=== PATIENT | female | born 1955 | race Caucasian/White ===

== ENCOUNTER 2020-09-28 13:49 | Emergency (ER) | payer OTHER ==
[~2020-09-28 13:49] MED LIST: ASPIRIN EC81 MG PO; LIPITOR40 MG PO; LISINOPRIL-HCT1 EAC1 PO; PREDNISONE 20MG20 MG PO; PRILOSEC40 MG PO; TOPROL XL 25MG25 MG PO; TOPROL XL 50 MG50 MG PO; VENTOLIN HFA IN18 GM INH; VIBRAMYCIN100 MG PO; ZOLOFT50 MG PO
[2020-09-28 14:57] LABS: BASOPHIL 1.3 % (0-2); EOSINOPHIL 4.5 % (0-7); HCT 43.8 % (37.0-47.0); LYMPHOCYTE 34.7 % (15-48); MCH 30.7 pg (25.0-31.0); MCV 96.1 fL (78.0-100.0); MONOCYTE 6.5 % (0-12); MPV 10.9 fL (6.0-9.5); NEUTROPHIL 52.6 % (41-80); NRBC 0; PLT 251 K/uL (150-400); RBC 4.56 M/uL (4.20-5.40); RDW 12.6 % (11.5-14.0); WBC 7.6 K/uL (4.0-10.5)
[2020-09-28 15:08] LABS: ALBUMIN 3.5 g/dL (3.4-5.0); BILIRUBIN - TOTAL 0.2 mg/dL (0.2-1.0); BUN/CREAT RATIO (CALC) 23.7 RATIO; CREATININE 0.76 mg/dL (0.51-0.95); GLOBULIN (CALCULATION) 3.5 g/dL; POTASSIUM 4.6 mmol/L (3.5-5.1)
[2020-09-28 16:02] LABS: CORONAVIRUS 2019 SARS-COV-2 NEGATIVE (NEGATIVE); INFLUENZA A NAA NEGATIVE (NEGATIVE)
[2020-09-28] MEDS ORDERED: PREDNISONE 20MG20 MG PO (18:22)
[2020-09-28] MEDS ORDERED: VIBRAMYCIN100 MG PO (18:22)
== END 2020-09-28 18:54 | disposition home or self-care (01) ==
LOC: FER 13:49
PROVIDERS: Emergency Medicine
DX: J44.1 Chronic obstructive pulmonary disease with (acute) exacerbation (principal); F17.210 Nicotine dependence, cigarettes, uncomplicated; Z88.5 Allergy status to narcotic agent; Z20.822 Contact with and (suspected) exposure to COVID-19
CPT/HCPCS: 36415; 71046; 71260; 80053; 83880; 84145; 85025; 93005; 94640; 94664; J2930; Q9967; U0002

== ENCOUNTER 2020-10-19 08:30 | Emergency (ER) | payer OTHER ==
[2020-10-19 08:58] LABS: BASOPHIL 1.4 % (0-2); HCT 39.1 % (37.0-47.0); HGB 12.7 g/dl (12.5-16.0); LYMPHOCYTE 29.7 % (15-48); MCH 30.8 pg (25.0-31.0); MCHC 32.5 g/dL (32.0-36.0); MCV 94.7 fL (78.0-100.0); MPV 10.6 fL (6.0-9.5); NEUTROPHIL 57.5 % (41-80); NRBC 0; PLT 247 K/uL (150-400); RBC 4.13 M/uL (4.20-5.40); RDW 12.6 % (11.5-14.0)
[2020-10-19 09:10] LABS: INR 1.01 (0.9-1.2); PROTHROMBIN TIME 12.6 SECONDS (11.4-13.6); PTT 26.5 SECONDS (22.2-34.7)
[2020-10-19 09:17] LABS: ALBUMIN 3.5 g/dL (3.4-5.0); BILIRUBIN - TOTAL 0.3 mg/dL (0.2-1.0); BUN/CREAT RATIO (CALC) 36.4 RATIO; CREATININE 0.77 mg/dL (0.51-0.95); GLOBULIN (CALCULATION) 3.2 g/dL; POTASSIUM 4.1 mmol/L (3.5-5.1); TOTAL PROTEIN 6.7 g/dL (6.4-8.2)
[2020-10-19 09:23] LABS: PRO-BNP 99 pg/mL (<125)
== END 2020-10-19 14:25 | disposition other institution (70) ==
LOC: FER 08:30
PROVIDERS: Emergency Medicine
DX: I20.0 Unstable angina (principal); I10 Essential (primary) hypertension; J44.9 Chronic obstructive pulmonary disease, unspecified; Z87.891 Personal history of nicotine dependence; Z20.822 Contact with and (suspected) exposure to COVID-19
CPT/HCPCS: 36415; 71045; 80053; 83735; 83880; 84484; 85025; 85610; 85730; 93005; J7030; U0002

== ENCOUNTER → 2021-08-19 | Day surgery (SDC) | payer OTHER ==
[~2021-08-19] VITALS: Ht 152.4 cm; Wt 65.1 kg
[~2021-08-19] MED LIST changes: +LISINOPRIL20 MG PO
[2021-08-19 13:52] LABS: HCT 44.7 % (37.0-47.0); HGB 14.7 g/dl (12.5-16.0); MCH 29.6 pg (25.0-31.0); MCHC 32.9 g/dL (32.0-36.0); MCV 90.1 fL (78.0-100.0); MPV 10.7 fL (6.0-9.5); RBC 4.96 M/uL (4.20-5.40); RDW 12.8 % (11.5-14.0); WBC 6.9 K/uL (4.0-10.5)
[2021-08-19 14:33] LABS: CREATININE 0.79 mg/dL (0.51-0.95); POTASSIUM 4.1 mmol/L (3.5-5.1)
== END | disposition home or self-care (01) ==
LOC: FAS 13:06
PROVIDERS: Anesthesiology; Legal Medicine
DX: M65.331 Trigger finger, right middle finger (principal); G56.01 Carpal tunnel syndrome, right upper limb; G56.81 Other specified mononeuropathies of right upper limb; I10 Essential (primary) hypertension; F41.9 Anxiety disorder, unspecified; Z87.891 Personal history of nicotine dependence; Z95.818 Presence of other cardiac implants and grafts; Z88.5 Allergy status to narcotic agent; Z79.82 Long term (current) use of aspirin; Z79.899 Other long term (current) drug therapy
CPT/HCPCS: 36415; 80048; J0690; J1100; J1885; J2250; J2405; J2704; J2795; J3010; J7120

== ENCOUNTER 2021-10-30 11:51 | Emergency (ER) | payer MEDICARE, OTHER ==
[2021-10-30 14:16] LABS: BASOPHIL 0.8 % (0-2); EOSINOPHIL 2.5 % (0-7); HCT 45.8 % (37.0-47.0); HGB 15.2 g/dl (12.5-16.0); LYMPHOCYTE 23.8 % (15-48); MCH 29.9 pg (25.0-31.0); MCHC 33.2 g/dL (32.0-36.0); MPV 10.2 fL (6.0-9.5); NEUTROPHIL 65.3 % (41-80); NRBC 0; PLT 280 K/uL (150-400); RBC 5.09 M/uL (4.20-5.40); RDW 13.4 % (11.5-14.0); WBC 10.8 K/uL (4.0-10.5)
[2021-10-30 14:29] LABS: ALBUMIN 3.9 g/dL (3.4-5.0); BILIRUBIN - TOTAL 0.4 mg/dL (0.2-1.0); BUN/CREAT RATIO (CALC) 35.1 RATIO; CREATININE 0.74 mg/dL (0.51-0.95); GLOBULIN (CALCULATION) 3.1 g/dL; POTASSIUM 4.7 mmol/L (3.5-5.1)
[2021-10-30] MEDS ORDERED: PREDNISONE 20MG20 MG PO ×2 (18:26→18:33)
[2021-10-30] MEDS ORDERED: VIBRAMYCIN100 MG PO ×2 (18:26→18:33)
[2021-10-30] MEDS ORDERED: PROVENTIL HFA6.7 GM INH ×2 (18:26→18:33)
[2021-10-30] MEDS ORDERED: MUCINEX D TABL1 EACH PO ×2 (18:26→18:33)
== END 2021-10-30 18:59 | disposition home or self-care (01) ==
LOC: FER 11:51
PROVIDERS: Emergency Medicine
DX: J44.1 Chronic obstructive pulmonary disease with (acute) exacerbation (principal); Z20.822 Contact with and (suspected) exposure to COVID-19; Z88.5 Allergy status to narcotic agent
CPT/HCPCS: 36415; 71046; 71250; 80053; 83605; 83880; 84145; 84484; 85025; 85379; 93005; 94640; 94664; 94760; J2543; J2930; U0002